=== PATIENT | male | born 1985 | race Two or more races ===

== ENCOUNTER 2019-08-23 09:16 | Emergency (ER) | payer SELFPAY ==
[~2019-08-23] VITALS: Ht 188 cm; Wt 104.3 kg
[2019-08-23 09:25] VITALS: BP 139/81
--- NOTE | 2019-08-23 09:40 | PHYS DOC ---
Adult General Chief Complaint Chief Complaint: COUGH HPI HPI Patient is a 23 year old male who presents with 5 days ago began having a cough, sneezing, nasal congestion and sore throat. Patient states that he then 3 days ago had a 6 foot ladder fall onto him hurting his left chest and his right shoulder. Patient states he is short of breath and having chest pain and tenderness. Patient states that every time he coughs or sneezing he has a stabbing pain in his chest and in his right shoulder. Patient has limited range of motion in the right shoulder. Patient states he took Tylenol last night for his pain. Patient's rating his pain as 10 out of 10. Review of Systems Review of Systems HENT: nasal congestion or sore throat [] Respiratory: cough or shortness of breath [] Cardiovascular: Left chest pain GI: Denies abdominal pain, +nausea, +vomiting, denies bloody stools or +diarrhea [] Musculoskeletal: Denies back pain. Right shoulder joint pain [] All other systems were reviewed and found to be within normal limits, except as documented in this note. Allergies Allergies Allergies Coded Allergies Type Severity Reaction Last Updated Verified No Known Drug Allergies 08/23/19 No Physical Exam Physical Exam Constitutional: Well developed, well nourished, no acute distress, non-toxic appearance. [] HENT: Normocephalic, atraumatic, bilateral external ears normal, oropharynx moist, no oral exudates, nose normal. Throat reddened without swelling or exudates. [] Eyes: PERRLA, EOMI, conjunctiva normal, no discharge. [] Neck: Normal range of motion, no tenderness, supple, no stridor. [] Cardiovascular:Heart rate regular rhythm, no murmur [] Lungs & Thorax: Left breath sounds diminished to auscultation [] Abdomen: Bowel sounds normal, soft, no tenderness, no masses, no pulsatile masses. [] Skin: Warm, dry, no erythema, no rash. [] Back: No tenderness, no CVA tenderness. [] Extremities: No tenderness, no cyanosis, no clubbing, Right shoulder ROM not intact, no edema. [] Neurologic: Alert and oriented X 3, normal motor function, normal sensory function, no focal deficits noted. [] Psychologic: Affect normal, judgement normal, mood normal. [] Current Patient Data Vital Signs Vital Signs Date Time Temp Pulse Resp B/P (MAP) Pulse Ox O2 Delivery O2 Flow Rate FiO2 08/23/19 09:25 97.7 74 19 139/81 (100) 100 Room Air 97.7 Lab Values Laboratory Tests Test 08/23/19 09:51 Group A Streptococcus Rapid Negative (NEGATIVE) EKG EKG [] Radiology/Procedures Radiology/Procedures [] Impressions: [facility] [address] [place] [address] IMAGING REPORT Signed PATIENT: ALYX HURD: [id number] : 1985 LOCATION: ER AGE: 33 SEX: M EXAM STATUS: REG ER ORD. PHYSICIAN: PIPPA REYES APRN REASON: pain, injury fell off ladder x3 days ago PROCEDURE: SHOULDER 2+V RIGHT SHOULDER 2+V RIGHT, CLAVICLE RIGHT History: Pain. Fall. Technique: 3 views right shoulder and 2 views right clavicle. Comparison: None. Findings: Normal alignment of the glenohumeral and acromioclavicular joint. No fracture. Soft tissues unremarkable. Impression: 1. No acute osseous abnormality. Electronically signed by: Nathalia Dill DO (08/23/2019 10:14 AM) [facility] DICTATED and SIGNED BY: NATHALIA DILL DO DATE: 08/23/19 1014 [facility] [address] [place] [address] IMAGING REPORT Signed PATIENT: ALYX HURD: [id number] : 1985 LOCATION: ER AGE: 33 SEX: M EXAM STATUS: REG ER ORD. PHYSICIAN: PIPPA REYES APRN REASON: cough,pain, injury PROCEDURE: CHEST PA & LATERAL CHEST PA LATERAL History: Pain. Cough. Trauma. Comparison: None. Findings: No consolidation or pleural effusion. Normal heart size. Impression: 1. No acute cardiopulmonary process. Electronically signed by: Nathalia Dill DO (08/23/2019 10:15 AM) [facility] DICTATED and SIGNED BY: NATHALIA DILL DO DATE: 08/23/19 1015 Course & Med Decision Making Course & Med Decision Making Vital signs are within normal limits. Skin pink warm and dry. Left-sided lung sounds are more diminished than the right side. Tenderness over the left chest there is no bruising or crepitus. Denies back pain, neck pain, headache, head injury, loc, dizziness, visual changes, numbness or tingling. No deformity or abrasion to the right shoulder but range of motion is very limited due to pain. Radial pulse strong and present. No swelling, No laxity in the joint. Patient states he last vomited or had diarrhea on Thursday. Alert and oriented. Ambulatory with a steady gait. Afebrile. Abdomen is soft and nontender. Throat is reddened but there is no swelling or exudates. Speaks in full clear sentences. Shoulder, clavicle, and chest xray shows no acute findings. Dragon Disclaimer Dragon Disclaimer This electronic medical record was generated, in whole or in part, using a voice recognition dictation system. Departure Departure Impression: Primary Impression: Cough Additional Impressions: Chest pain Shoulder pain Disposition: HOME, SELF-CARE Condition: STABLE Referrals: NO PCP (PCP) Patient Instructions: Contusion, Cough, Adult, Shoulder Pain Additional Instructions: Use ice and heat to help with pain. Take Ibuprofen to help with pain. Follow up with primary care provider. Scripts Orphenadrine Citrate (ORPHENADRINE CITRATE) 100 Mg Tablet.er 1 TAB PO BID, #20 TAB Prov: PIPPA REYES VESSEL ENGINEER 08/23/19 Ibuprofen (IBUPROFEN) 600 Mg Tablet 600 MG PO PRN Q6HRS PRN for INFLAMMATION, #20 TAB Prov: PIPPA REYES VESSEL ENGINEER 08/23/19 Methylprednisolone (MEDROL) 4 Mg Tab.ds.pk 1 PKG PO UD, #1 PKG Prov: PIPPA REYES VESSEL ENGINEER 08/23/19 Problem Qualifiers Additional Impressions: Chest pain Chest pain type: unspecified Qualified Codes: R07.9 - Chest pain, unspecified Shoulder pain Chronicity: acute Laterality: right Qualified Codes: M25.511 - Pain in right shoulder PIPPA REYES VESSEL ENGINEER Aug 23, 2019 09:40
--- NOTE | 2019-08-23 10:17 | RAD ---
SHOULDER 2+V RIGHT, CLAVICLE RIGHT History: Pain. Fall. Technique: 3 views right shoulder and 2 views right clavicle. Comparison: None. Findings: Normal alignment of the glenohumeral and acromioclavicular joint. No fracture. Soft tissues unremarkable. Impression: 1. No acute osseous abnormality. Electronically signed by: Ashu Cherry DO (08/23/2019 10:14 AM) [facility]
--- NOTE | 2019-08-23 10:17 | RAD ---
SHOULDER 2+V RIGHT, CLAVICLE RIGHT History: Pain. Fall. Technique: 3 views right shoulder and 2 views right clavicle. Comparison: None. Findings: Normal alignment of the glenohumeral and acromioclavicular joint. No fracture. Soft tissues unremarkable. Impression: 1. No acute osseous abnormality. Electronically signed by: Ashu Cherry DO (08/23/2019 10:14 AM) [facility]
--- NOTE | 2019-08-23 10:19 | RAD ---
CHEST PA LATERAL History: Pain. Cough. Trauma. Comparison: None. Findings: No consolidation or pleural effusion. Normal heart size. Impression: 1. No acute cardiopulmonary process. Electronically signed by: Ashu Cherry DO (08/23/2019 10:15 AM) [facility]
[2019-08-23 10:26] LABS: INFLUENZA A PATIENT NEGATIVE (NEGATIVE); INFLUENZA B PATIENT NEGATIVE (NEGATIVE)
[2019-08-23] MEDS ORDERED: IBUP-1007 PO (10:31)
[2019-08-23] MEDS ORDERED: ORPH100T PO (10:31)
[2019-08-23] MEDS ORDERED: METH4TAB2 PO (10:31)
--- NOTE | 2019-08-23 10:56 | EKG ---
[facility] [address] [place] [address] Test Date: 2019-08-23 Test Time: 10:09:57 Pat Name: PEDRO HURD Department: Room: Gender: M Therapeutic Massage Technician: : 1985 Requested By: PIPPA REYES Order Number: [id number] Reading MD: Measurements Intervals Arnett Rate: 62 P: 0 KS: 208 QRS: 42 QRSD: 88 T: 20 QT: 380 QTc: 388 Interpretive Statements SINUS RHYTHM NORMAL ECG RI6.01 No previous ECG available for comparison
== END 2019-08-23 10:43 | disposition home or self-care (01) ==
LOC: ER 09:16 → EDBD 09:16 → ER 10:43
DX: R05 Cough (principal); R07.89 Other chest pain; M25.511 Pain in right shoulder; R09.81 Nasal congestion; R06.02 Shortness of breath; J02.9 Acute pharyngitis, unspecified
CPT/HCPCS: 71046; 73000; 73030; 87070; 87804; 87880; 93005; 99285